=== PATIENT | female | born 1990 | race Caucasian/White ===

== ENCOUNTER 2019-07-23 14:57 | Inpatient (IN) | payer BC ==
[2019-07-23] MEDS ORDERED: Oxytocin 10 Units/1 ML SDV ONE (15:10)
[2019-07-23] MEDS ORDERED: Sodium Chloride 0.9% 10 ML Syringe FLUSH PRN (15:15)
[2019-07-23] MEDS ORDERED: Lactated Ringers 1,000 ML IV SCH (15:15)
[2019-07-23] MEDS ORDERED: Oxytocin 10 Units/1 ML SDV IM ONE (15:15)
[2019-07-23] MEDS ORDERED: Acetaminophen 325 MG Tab PO PRN (18:54)
[2019-07-23] MEDS: Ibuprofen 600 MG Tab PO PRN (20:34)
--- NOTE | 2019-07-23 21:13 | PCM.LDHP ---
L&D History of Present Illness - General Date of Service: 07/23/19 Admit Problem/Dx: Patient Status Order with Admit Dx/Problem 07/23/19 15:16 Patient Status [ADT] Routine 07/23/19 18:54 Patient Status [ADT] Routine Admission Diagnosis/Problem Admission Diagnosis/Problem care 07/23/19 21:03 Emilia is a 28-year-old 4 para 4004 white female at 40-4/7 weeks gestational age with an LAKE of 07/19/2019 who was admitted on the afternoon of in active labor. Shortly after arrival in labor and delivery the patient was found to be completely dilated and immediately thereafter delivered a viable, park, female infant in a precipitous fashion. Source of Information: Patient History Limitations: Reports: No Limitations - History of Present Illness Introduction:: Emilia is a 28-year-old 4 para 4004 white female at 40-4/7 weeks gestational age with an LAKE of 07/19/2019 who was admitted on the afternoon of in active labor. Shortly after arrival in labor and delivery the patient was found to be completely dilated and immediately thereafter delivered a viable, park, female in a precipitous fashion. 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 LAKE 07/19/2019 is based upon early ultrasound done at 10-6/7 weeks on 12/26/2017 is supported by another ultrasound on 03/28/2019. Patient's past history includes normal menarche. Cycles regular. No control at time of conception. There is included 3 deliveries in 2013 2016 2017. Most of been relatively unremarkable with largest baby being 8 lbs. 1 oz. Last baby was somewhat growth restricted at 4 lbs. 4 oz. at term. Baby is marked. There are 2 females and one male previously delivered. course. Patient's initially seen at 10 weeks and 5 days. She seen on a regular basis throughout the course and last evaluation on 07/22/2019 showed normal fundal height. Vital signs are stable area cervix 3 cm and 80% effaced at that time. Patient declined flu shot and that T dap vaccination. She declined 1 hour GTT. She declined and by screen Rh immunoglobulin 2628 weeks. She prefers natural approach to and labor and delivery. On significant risk factors history of intrauterine growth restriction with last . She is rubella immune. She is had her hepatitisA, hepatitis B and meningococcal immunizations previously. Laboratory testing during : Blood is B- with negative MRI screen. Hemoglobin is 13.3 and platelets are 314,000. She is rubella immune. Culture was unremarkable. Patient refused STI testing. Second trimester showed a hemoglobin of 12.1 g/dL and platelets of 382,000. Patient does not desire to do the 1 hour GTT. Her group B strep screen was negative. Allergies: none Medications: 1. Pro-air HFA inhaler when necessary 2. vitamins. 3. Calcium 4. Probiotic capsule. Past medical history: 1. Elevated blood pressures towards the end of 2 pregnancies. Intrauterine growth restriction with third . 2. Exercise-induced asthma. 3. 3. Past surgical history: 1. January 2016 left oophorectomy secondary to dermoid cyst. Family history: Mother and father alive in good health. No evidence of problems, bleeding or blood clotting problems, asthma or anesthesia other than herself. Has 1 sister with focal segmental glomerulosclerosis. Social history: Patient is . She lives in [place]. is [employer]. She denies any significant most alcohol drugs good tobacco. 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 Review of systems: In general patient has no complaints. Contractions upon admission. Skin: Negative Lungs: No infectious symptoms or shortness of breath Cardiovascular: No chest pain or exercise intolerance Breasts: Changes of . GI: Negative : Body habitus is changes associated with . Musculoskeletal: Negative Neurological: Negative In general the patient is well-developed, well-nourished, pleasant female of stated age in no acute distress. Last evaluation on 07/22/2019 in clinic her blood pressure 114/70 weight was 186.8 pounds with first weight at 151 pounds. Her heart rate is 132. Her height is 5 feet 7 and prepregnancy body mass index is 24.3. Skin is warm dry without lesions. HEENT, neck and back within normal limits. Lungs are clear with good breath sounds in all lung hoffman. Cardiovascular exam shows regular and rhythm without murmurs. Abdomen is noted with fundal height on last evaluation at 38 cm. Genital per per digital exam shows cervix on last visit to be 3 cm, 80% effaced , -3 station, soft, anterior position. Extremities and neurological exam are grossly within normal limits. Pain Score: 4 - Related Data Allergies/Adverse Reactions: Allergies Allergy/AdvReac Type Severity Reaction Status Date / Time No Known Allergies Allergy Verified 07/23/19 18:58 Home Medications: Home Meds Calcium Carbonate/Vitamin D3 [Calcium 500 + Vit D 400] 1 each PO DAILY 07/23/19 [History] L.acidoph,Paracasei, B.lactis [Probiotic] 1 each PO DAILY 07/23/19 [History] No122/Iron/Folic Acid [ Multi Tablet] 1 each PO DAILY 07/23/19 [History] Past Medical History - Past Health History Medical/Surgical History: Denies Medical/Surgical History Cardiovascular History: Reports: None Respiratory History: Reports: Asthma Other Respiratory History: Exercise induced asthma 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: Reports: Other OB/BYN History: Left ovarian cyst and fallopian tube torsion - Infectious Disease History Infectious Disease History: Reports: Chicken Pox - Past Surgical History HEENT Surgical History: Reports: Oral Surgery Respiratory Surgical History: Reports: None Female Surgical History: Reports: Oophorectomy Social & Family History - Family History Family Medical History: Noncontributory - Tobacco Use Smoking Status *Q: Never Smoker - Recreational Drug Use Recreational Drug Use: No H&P Review of Systems - Review of Systems: Review Of Systems: See Below L&D Exam - Exam Exam: See Below - Vital Signs Vital Signs: Last Vital Signs Temp 36.1 C 07/23/19 15:16 Pulse 81 07/23/19 15:16 Resp 18 07/23/19 15:16 BP 135/86 07/23/19 15:16 Pulse Ox 90 L 07/23/19 15:16 Weight: 83.915 kg Problem List Initiated/Reviewed/Updated: Yes Orders Last 24hrs: Active Orders 24 hr Category Date Time Status Patient Status Manage Transfer [TRANSFER] Routine ADT 07/23/19 20:53 Ordered Patient Status [ADT] Routine ADT 07/23/19 18:54 Active Activity as Tolerated [RC] PER UNIT ROUTINE Care 07/23/19 18:54 Active Activity as Tolerated [RC] PFP Care 07/23/19 15:16 Active Communication Order [RC] ASDIRECTED Care 07/23/19 15:16 Active Notify Provider [RC] PFP Care 07/23/19 15:16 Active Notify Provider [RC] PRN Care 07/23/19 15:16 Active Vital Signs [RC] 03,09,15,21 Care 07/23/19 18:54 Active Regular Diet [DIET] Diet 07/23/19 Lunch Active Acetaminophen [Tylenol] Med 07/23/19 18:54 Active 650 mg PO Q4H PRN Ibuprofen [Motrin] Med 07/23/19 18:54 Active 600 mg PO Q4H PRN Lactated Ringers [Ringers, Lactated] 1,000 ml Med 07/23/19 15:15 Active IV ASDIRECTED Sodium Chloride 0.9% [Saline Flush] Med 07/23/19 15:15 Active 10 ml FLUSH ASDIRECTED PRN Assess Lochia [WOMSER] Per Unit Routine Oth 07/23/19 18:54 Ordered Assess Uterine Involution [WOMSER] Per Unit Routine Oth 07/23/19 18:54 Ordered Breast Pump [WOMSER] Per Unit Routine Oth 07/23/19 18:54 Ordered Electronic Heart Tones Ext w TOCO [WOMSER] Oth 07/23/19 15:16 Ordered Routine Electronic Heart Tones Internal [WOMSER] Per Unit Oth 07/23/19 15:16 Ordered Routine Heat Therapy [OM.PC] PRN Ot 07/23/19 19:00 Ordered Heat Therapy [OM.PC] PRN Oth 07/24/19 19:00 Ordered Medication Administration Instruction [OM.PC] Routine Oth 07/23/19 18:54 Ordered Perineal Care [OM.PC] Per Unit Routine Oth 07/23/19 18:54 Ordered Peripheral IV Insertion Adult [OM.PC] Routine Oth 07/23/19 15:16 Ordered Sitz Bath [OM.PC] Per Unit Routine Oth 07/23/19 18:54 Ordered Resuscitation Status Routine Resus Stat 07/23/19 15:15 Ordered Medication Orders Acetaminophen (Tylenol) 650 mg PO Q4H PRN PRN Reason: mild pain or fever Lactated Ringer's (Ringers, Lactated) 1,000 mls @ 100 mls/hr IV ASDIRECTED VASILE Ibuprofen (Motrin) 600 mg PO Q4H PRN PRN Reason: Mild pain or fever Last Admin: 07/23/19 20:34 Dose: 600 mg Sodium Chloride (Saline Flush) 10 ml FLUSH ASDIRECTED PRN PRN Reason: Keep Vein Open Assessment/Plan Comment:: Assessment: 1. 40-4/7 week intrauterine with LAKE 07/19/2019-delivered by precipitous delivery 2. Risk factors include history of intrauterine growth restriction. History of hypertension in last 2 pregnancies. 3. Patient last breast-feed 4. Patient desires natural labor Plan: 1. Anticipate normal evaluation. 2. Support breast feeding decision
--- NOTE | 2019-07-23 21:18 | PCM.SN ---
- Free Text/Narrative Note: Delivery note: Emilia is a 28-year-old 4 now para 4004 white female is admitted on the afternoon of 07/23/2019 and precipitous labor and delivered within minutes of the time she arrived at the hospital. She is 40-4/7 weeks gestational age with an LAKE of 07/19/2019. Delivery of viable, park, female infant with Apgars of 8 and 8, a weight of 3100 g menses 6 pounds 13.3 ounces and a length of 20.0 inches and a precipitous fashion prior to the time that physician arrived in the delivery room. She delivered at 1507 hrs. on . Cord blood was obtained. Cord had 3 vessels. The placenta delivered in a Costello fashion and 1511 hrs., appeared intact and complete and was taken by the patient to be encapsulated. Risks of taken placenta, encapsulation etc. discussed in detail patient is signed a release of responsibility. There was meconium-stained amniotic fluid. Perineum was intact. She plans to breast-feed. Condition: Good. Assessment loss 100 mL.
[2019-07-24] MEDS: Ibuprofen 600 MG Tab PO PRN ×2 (03:12→09:08)
--- NOTE | 2019-07-24 05:48 | PCM.SN ---
- Free Text/Narrative Note: note: Patient is doing well in the period. Minimal lochia, voiding well, ambulated without problems. Nursing without concerns. Patient is afebrile, vital signs are stable Abdomen is flat, soft, uterus is below the umbilicus and is firm and nontender. Legs are nontender. Assessment: recovery going well. Plan: Routine care. Patient be discharged home within the next 24-48 hours.
--- NOTE | 2019-07-24 07:08 | PCM.DCSUM1 ---
Discharge Summary - Hospital Course Free Text/Narrative:: Emilia is a 28-year-old 4 now para 4004 white female is admitted on the afternoon of 07/23/2019 and precipitous labor and delivered within minutes of the time she arrived at the hospital. She is 40-4/7 weeks gestational age with an LAKE of 07/19/2019. Delivery of viable, park, female with Apgars of 8 and 8, a weight of 3100 g menses 6 pounds 13.3 ounces and a length of 20.0 inches and a precipitous fashion prior to the time that physician arrived in the delivery room. She delivered at 1507 hrs. on . Cord blood was obtained. Cord had 3 vessels. The placenta delivered in a Costello fashion and 1511 hrs., appeared intact and complete and was taken by the patient to be encapsulated. Risks of taken placenta, encapsulation etc. discussed in detail patient is signed a release of responsibility. There was meconium-stained amniotic fluid. Perineum was intact. Postterm patient is done well. She is eager to get home. She has minimal lochia , was voiding well, was ambulating without concerns. She is breast-feeding without problems. 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 She is desiring discharge later today when baby is released. She plans to breast-feed. Condition: Good. Diagnosis: Stroke: No - Discharge Data Discharge Date: 07/24/19 Discharge Disposition: Home, Self-Care 01 Condition: Good - Referral to Home Health Primary Care Physician: Tay Peck MD - Patient Instructions Diet: Regular Diet as Tolerated (Nursing diet was increased calories and calcium is recommended) Activity: As Tolerated (No intercourse tampons still bleeding resolves) Driving: May Drive Today Showering/Bathing: May Shower (May take a bath) Notify Provider of: Fever, Increased Pain, Swelling and Redness, Nausea and/or Vomiting - Discharge Plan Home Medications: Home Meds Calcium Carbonate/Vitamin D3 [Calcium 500 + Vit D 400] 1 each PO DAILY 07/23/19 [History] L.acidoph,Paracasei, B.lactis [Probiotic] 1 each PO DAILY 07/23/19 [History] No122/Iron/Folic Acid [ Multi Tablet] 1 each PO DAILY 07/23/19 [History] Acetaminophen [Tylenol] 650 mg PO Q4H PRN tablet 07/24/19 [Rx] Ibuprofen [Motrin] 600 mg PO Q4H PRN tablet 07/24/19 [Rx] Referrals: Tay Peck MD [Primary Care Provider] - (Return to [facility] weeks.) - Discharge Summary/Plan Comment DC Time >30 min.: No Discharge Summary/Plan Comment: Discharge instructions: 1. Discharge home 2. Diet, activity and follow-up discussed with patient. Recommend nursing diet with increased calories and calcium. 3. Precautions given concern increased pain, bleeding, temperature, signs/ symptoms of DVT/PE. 4. Medications per home medication was printed, discussed with and given to the patient. 5. Return to clinic-Dr. Peck[facility] in 2 weeks. Diagnosis: Term -delivered Condition: Good - Patient Data Vitals - Most Recent: Last Vital Signs Temp 36.9 C 07/24/19 03:11 Pulse 80 07/24/19 03:11 Resp 16 07/24/19 03:11 BP 130/87 07/24/19 03:11 Pulse Ox 98 07/24/19 03:11 Weight - Most Recent: 83.915 kg Med Orders - Current: Current Medications Acetaminophen (Tylenol) 650 mg PO Q4H PRN PRN Reason: mild pain or fever Lactated Ringer's (Ringers, Lactated) 1,000 mls @ 100 mls/hr IV ASDIRECTED VASILE Ibuprofen (Motrin) 600 mg PO Q4H PRN PRN Reason: Mild pain or fever Last Admin: 07/24/19 03:12 Dose: 600 mg Sodium Chloride (Saline Flush) 10 ml FLUSH ASDIRECTED PRN PRN Reason: Keep Vein Open Discontinued Medications Oxytocin (Pitocin) Confirm Administered Dose 10 unit .ROUTE .STK-MED ONE Stop: 07/23/19 15:11 Last Admin: 07/24/19 04:11 Dose: Not Given Oxytocin (Pitocin) 10 unit IM ONETIME ONE Stop: 07/23/19 15:16 Last Admin: 07/24/19 04:11 Dose: Not Given
[2019-07-24 07:56] VITALS: BP 123/81; PULSE 74
[2019-07-24] MEDS ORDERED: Docusate Sodium 100 MG Cap PO PRN ×2 (09:05→09:34)
[2019-07-24] MEDS ORDERED: Ibuprofen 600 MG Tab PO PRN (09:34)
[2019-07-24] MEDS ORDERED: Benzocaine/Menthol 20%-0.5% Spray 56 GM Canister TOP PRN (09:34)
[2019-07-24] MEDS ORDERED: Acetaminophen 325 MG Tab PO PRN (09:34)
[2019-07-24] MEDS ORDERED: Witch Hazel Medicated Pads 40/Jar TOP PRN (09:34)
== END 2019-07-24 17:05 | disposition home or self-care (01) | DRG 560 ==
LOC: JD.OBCHECK 14:57 → UNDOADMOB 15:02 → JD.OB 15:02 → OBSVTOIN 15:07 → JD.OB 15:07
PROVIDERS: ADMIT Obstetrics & Gynecology; ATTEND Obstetrics & Gynecology
PROC: 10E0XZZ Delivery of Products of Conception, External Approach (ICD-10-PCS; principal; 2019-07-23)
DX: O48.0 Post-term pregnancy (principal); O62.3 Precipitate labor; O77.0 Labor and delivery complicated by meconium in amniotic fluid; Z3A.40 40 weeks gestation of pregnancy; Z37.0 Single live birth
CPT/HCPCS: 59025; 59409; A9270-GY